=== PATIENT | female | born 1965 | race Caucasian/White ===

== ENCOUNTER 2017-05-04 19:49 | Inpatient (IN) | payer OTHER, MEDICAID ==
[~2017-05-04] VITALS: Ht 152.4 cm; Wt 84.8 kg
[2017-05-04 20:59] LABS: BASOPHIL % 0.3 % (0-2); PLATELET COUNT 280 x10^3mcL (130-400)
[2017-05-04 21:25] LABS: CALCIUM 8.7 mg/dL (8.5-10.1); CARBON DIOXIDE 29.3 mmol/L (21-32); CHLORIDE SERUM 98 mmol/L (98-107); CREATININE SERUM 1.1 mg/dL (0.7-1.3); GFR1 > 60 mL/min; GLUCOSE SERUM 117 mg/dL (74-106); POTASSIUM SERUM 3.6 mmol/L (3.5-5.1); SODIUM SERUM 139 mmol/L (136-145)
[2017-05-04 21:37] LABS: ALBUMIN 3.5 g/dL (3.4-5.0); ALKALINE PHOSPHATASE 84 U/L (46-116); ALT/SGPT 48 U/L (16-63); AST/SGOT 24 U/L (15-37); BILIRUBIN TOTAL 0.4 mg/dL (0.20-1.00); TOTAL PROTEIN, SERUM 7.2 g/dL (6.4-8.2)
[2017-05-04 23:12] LABS: microscopic required? NO
[2017-05-04 23:26] LABS: urine erythrocyte NEGATIVE (NEGATIVE)
[2017-05-04 23:36] LABS: AMPHETAMINE QUAL UR NONE DETECTED (NEG <=1000)
[2017-05-05 00:12] VITALS: BP 137/82
[2017-05-05 00:12] LABS: PHOSPHOROUS 3.3 mg/dL (2.5-4.9)
[2017-05-05 00:18] LABS: CHOLESTEROL/HDL RATIO 2.9
[2017-05-05 00:22] LABS: T3 TOTAL 1.19 ng/mL
[2017-05-05 00:25] LABS: FREE T4 1.08 ng/dL (0.76-1.46); FREE THYROXINE INDEX 2.7 ug/dL (1.4-4.5); T4(THYROXINE) 8.5 ug/dL (4.7-13.3)
[2017-05-05 07:05] LABS: CALCIUM 8.6 mg/dL (8.5-10.1); CARBON DIOXIDE 28.1 mmol/L (21-32); CHLORIDE SERUM 101 mmol/L (98-107); GFR1 > 60 mL/min; GLUCOSE SERUM 103 mg/dL (74-106); MAGNESIUM 1.9 mg/dL (1.8-2.4); PHOSPHOROUS 2.8 mg/dL (2.5-4.9); POTASSIUM SERUM 3.7 mmol/L (3.5-5.1); SODIUM SERUM 137 mmol/L (136-145)
[2017-05-05 07:19] LABS: BASOPHIL % 0.3 % (0-2); PLATELET COUNT 270 x10^3mcL (130-400); RED CELL DISTRIBUTION WIDTH 14.1 % (11.5-14.5)
[2017-05-05 10:04] VITALS: BP 105/65
[2017-05-05 15:32] VITALS: BP 125/64
[2017-05-05 18:01] VITALS: BP 117/73
[2017-05-05 21:16] VITALS: BP 111/70
[2017-05-06 06:01] VITALS: BP 138/69
[2017-05-06 06:21] LABS: BASOPHIL % 0.3 % (0-2); PLATELET COUNT 283 x10^3mcL (130-400); RED CELL DISTRIBUTION WIDTH 13.5 % (11.5-14.5)
[2017-05-06 06:29] LABS: CALCIUM 8.3 mg/dL (8.5-10.1); CHLORIDE SERUM 106 mmol/L (98-107); CREATININE SERUM 1.1 mg/dL (0.7-1.3); GFR1 > 60 mL/min; GLUCOSE SERUM 104 mg/dL (74-106); PHOSPHOROUS 3.3 mg/dL (2.5-4.9); POTASSIUM SERUM 4.4 mmol/L (3.5-5.1); SODIUM SERUM 143 mmol/L (136-145)
[2017-05-06 10:05] VITALS: BP 115/69
[2017-05-06] MEDS ORDERED: LAC PO (10:47)
[2017-05-06] MEDS ORDERED: APAP/HYDROCODON1 T13 PO (10:47)
[2017-05-06] MEDS ORDERED: CIPROFLOXACIN500 MG PO (10:53)
[2017-05-06] MEDS ORDERED: FLA500 PO (10:53)
[2017-05-06] MEDS ORDERED: COLACE100 MG PO (11:59)
[2017-05-06] MEDS ORDERED: METAMUCIL660 GM PO (12:00)
[2017-05-06 13:44] VITALS: BP 117/78
[2017-05-06 13:47] VITALS: BP 117/78
== END 2017-05-06 14:50 | disposition home health service (06) | DRG 346 ==
LOC: ED 19:49 → EDSEX 21:08 → DU 21:08
PROVIDERS: Emergency Medicine; Family Medicine; Surgery; ADMIT Student in an Organized Health Care Education/Training Program
PROC: 0D9P0ZZ Drainage of Rectum, Open Approach (ICD-10-PCS; principal; 2017-05-05 11:30)
DX: K61.1 Rectal abscess (principal); R73.03 Prediabetes; E78.00 Pure hypercholesterolemia, unspecified; R32 Unspecified urinary incontinence; D64.9 Anemia, unspecified; Z68.36 Body mass index [BMI] 36.0-36.9, adult
CPT/HCPCS: 82962; 83880; 84439; 94150; J0295; J0690; J1956; J2250; J2270; J2405; J2704; J3010; J3490; J7030; Q0092; Q9967

== ENCOUNTER 2018-11-19 17:20 | Emergency (ER) | payer MEDICAID ==
[~2018-11-19] VITALS: Ht 165.1 cm; Wt 82.1 kg
[~2018-11-19 17:20] MED LIST: APAP/HYDROCODON1 T13 PO; CIPROFLOXACIN500 MG PO; COLACE100 MG PO; FLA500 PO; LAC PO; METAMUCIL660 GM PO
[2018-11-19 17:35] VITALS: Ht 165.1 cm; Wt 82.1 kg
[2018-11-19 19:00] VITALS: BP 133/94
== END 2018-11-19 19:00 | disposition home or self-care (01) ==
LOC: EDSEX 17:20 → ED 17:20
DX: M10.071 Idiopathic gout, right ankle and foot (principal)
CPT/HCPCS: J1885; Q0092

== ENCOUNTER 2020-03-30 21:38 | Emergency (ER) | payer MEDICAID ==
[~2020-03-30] VITALS: Ht 165.1 cm; Wt 83.9 kg
[2020-03-30 21:44] VITALS: Ht 165.1 cm; Wt 83.9 kg
[2020-03-30 22:52] LABS: BASOPHIL % 0 % (0-2); PLATELET COUNT 208 x10^3mcL (130-400); RED CELL DISTRIBUTION WIDTH 13.3 % (11.5-14.5)
[2020-03-30 23:04] LABS: CARBON DIOXIDE 22.1 mmol/L (21-32); CHLORIDE SERUM 94 mmol/L (98-107); CREATININE SERUM 1.3 mg/dL (0.7-1.3); GFR1 > 60 mL/min; GLUCOSE SERUM 135 mg/dL (74-106); POTASSIUM SERUM 4.3 mmol/L (3.5-5.1); SODIUM SERUM 129 mmol/L (136-145)
[2020-03-30 23:07] LABS: ALBUMIN 3.5 g/dL (3.4-5.0); ALKALINE PHOSPHATASE 41 U/L (46-116); ALT/SGPT 44 U/L (16-63); AST/SGOT 42 U/L (15-37); BILIRUBIN TOTAL 0.3 mg/dL (0.20-1.00); CHOLESTEROL 151 mg/dL (<200); HDL CHOLESTEROL 45 mg/dL (40-60); LIPASE 307 IU/L (73-393); TOTAL PROTEIN, SERUM 7.6 g/dL (6.4-8.2)
[2020-03-30 23:18] LABS: UA SPECIFIC GRAVITY 1.025 (1.005-1.035); microscopic required? YES; urine erythrocyte NEGATIVE (NEGATIVE)
[2020-03-30 23:43] LABS: AMPHETAMINE QUAL UR NONE DETECTED (See below)
[2020-03-31 00:21] VITALS: BP 103/60
== END 2020-03-31 00:21 | disposition home or self-care (01) ==
LOC: ED 21:38
PROVIDERS: Emergency Medicine
DX: U07.1 COVID-19 (principal); R10.13 Epigastric pain
CPT/HCPCS: 83880; 87804; J1885; J7030; Q0092; U0003-CS

== ENCOUNTER 2020-10-04 12:55 | Emergency (ER) | payer MEDICAID ==
[~2020-10-04] VITALS: Ht 165.1 cm; Wt 84.8 kg
[2020-10-04 13:36] VITALS: BP 160/97; Ht 165.1 cm; Wt 84.8 kg
== END 2020-10-04 18:31 | disposition home or self-care (01) ==
LOC: ED 12:55
DX: S29.012A Strain of muscle and tendon of back wall of thorax, initial encounter (principal); S66.911A Strain of unspecified muscle, fascia and tendon at wrist and hand level, right hand, initial encounter; Y04.8XXA Assault by other bodily force, initial encounter; Y93.89 Activity, other specified; Y92.89 Other specified places as the place of occurrence of the external cause; Y99.8 Other external cause status
CPT/HCPCS: 72072